=== PATIENT | male | born 1940 | race Caucasian/White ===

== ENCOUNTER 2022-01-24 09:10 | Emergency (ER) | payer SELFPAY ==
[~2022-01-24] VITALS: Ht 167.6 cm; Wt 63.6 kg
[2022-01-24 09:16] VITALS: BP 135/96
[2022-01-24 09:24] VITALS: BP 135/96
== END 2022-01-24 09:43 | disposition home or self-care (01) | DRG 607 ==
LOC: ED 09:10
DX: L85.3 Xerosis cutis (principal); I10 Essential (primary) hypertension; E78.5 Hyperlipidemia, unspecified

== ENCOUNTER 2022-09-06 09:22 | Emergency (ER) | payer SELFPAY ==
[~2022-09-06] VITALS: Ht 167.6 cm; Wt 72.7 kg
[2022-09-06 09:42] VITALS: BP 102/83
[2022-09-06 09:46] VITALS: BP 127/82
[2022-09-06 10:38] VITALS: BP 112/68
== END 2022-09-06 09:52 | disposition home or self-care (01) | DRG 607 ==
LOC: ED 09:22
DX: B07.0 Plantar wart (principal); I10 Essential (primary) hypertension; E78.5 Hyperlipidemia, unspecified

== ENCOUNTER 2024-04-27 09:39 | Emergency (ER) | payer SELFPAY ==
[~2024-04-27] VITALS: Ht 167.6 cm; Wt 81.0 kg
[2024-04-27 09:44] VITALS: BP 134/71
[2024-04-27] MEDS ORDERED: LISINOPRIL40 MG PO (09:48)
[2024-04-27] MEDS ORDERED: SIMVASTATIN40 MG PO (09:48)
[2024-04-27 10:00] VITALS: BP 108/71
[2024-04-27 10:16] VITALS: BP 108/71
== END 2024-04-27 10:11 | disposition home or self-care (01) | DRG 951 ==
LOC: ED 09:39
DX: Z76.0 Encounter for issue of repeat prescription (principal); I10 Essential (primary) hypertension; E78.5 Hyperlipidemia, unspecified